=== PATIENT | male | born 1955 | race Caucasian/White ===

== ENCOUNTER 2016-07-12 06:06 | Inpatient (IN) | payer BC ==
[~2016-07-12] VITALS: Ht 182.9 cm; Wt 99.8 kg
--- NOTE | 2016-07-12 06:17 | NUR ---
PT BIB WITH C/O PALPITATIONS THAT STARTED ABOUT 4:30 THIS AM.PT STATES FEELING SOME PRESSURE IN CHEST AND SOME NAUSEA.PT STATES FEELS LIKE HEART BEAT GOING FAST AND SLOW.ERMD AT BEDSIDE EVALUATING PT.PT STATES PRESSURE 7/10.PT STATES TOOK 2 EXCEDRIN THIS AM... PT IS ALERT, ORIENTED X 4, NO RESP DISTRESS NOTED OR REPORTED UPON ASSESSMENT... MD AT BEDSIDE...
[2016-07-12] MEDS ORDERED: NEBI5TAB8 PO (06:29)
[2016-07-12] MEDS ORDERED: LOSA100T15 PO (06:29)
[2016-07-12] MEDS ORDERED: METOPROLOL TARTRATE 5 MG/5 ML VIAL IVP ONE ×4 (06:30→07:16)
--- NOTE | 2016-07-12 06:38 | NUR ---
EXECUTIVE ADMINISTRATIVE ASST AT BEDSIDE FOR CHEST X-RAY....
--- NOTE | 2016-07-12 06:38 | NUR ---
PT STATES HE IS FEELING ALOT BETTER, PTS IS AT HIS SIDE, ADVISED CHEST X-RAY HAS BEEN ORDERED.... WILL CONTINUE TO MONITOR FOR SAFETY, COMFORT, AND PAIN...
[2016-07-12 06:44] LABS: ALBUMIN 4.2 g/dL (3.4-5.0); BILIRUBIN,DIRECT 0.1 mg/dL (0.0-0.2); BILIRUBIN,TOTAL 0.7 mg/dL (0.2-1.0); CALCIUM 8.7 mg/dL (8.5-10.1); POTASSIUM 2.9 mmol/L (3.5-5.1); TOTAL PROTEIN, SERUM 7.2 g/dL (6.4-8.2)
[2016-07-12 06:45] LABS: CREATININE 1.4 mg/dL (0.6-1.3)
[2016-07-12 06:48] LABS: BASOPHILS # (AUTO) 0.1 K/uL (0.0-8.0); BASOPHILS % (AUTO) 0.9 % (0.0-2.0); EOSINOPHILS # (AUTO) 0.2 K/uL (0.0-0.7); EOSINOPHILS % (AUTO) 2.6 % (0.0-7.0); HEMATOCRIT 46.1 % (40-50); HEMOGLOBIN 15.8 G/DL (14.0-18.0); LYMPHOCYTES % (AUTO) 40.2 % (20.5-51.5); MEAN CORPUSCULAR HEMOGLOBIN 29.4 UUG (27.0-31.0); MEAN CORPUSCULAR HGB CONC 34 g/dL (32.0-37.0); MEAN CORPUSCULAR VOLUME 86.1 FL (82.0-92.0); MONOCYTES % (AUTO) 13.3 % (0.0-11.0); NEUTROPHILS # (AUTO) 3.2 K/uL (1.8-8.9); PLATELET COUNT (AUTO) 285 K/UL (150-450); RED BLOOD CELL COUNT(AUTO) 5.35 MIL/UL (4.7-6.1); WHITE BLOOD COUNT (AUTO) 7.5 K/UL (4.0-11.2)
--- NOTE | 2016-07-12 07:00 | NUR ---
CARE ENDORSED TO DAYSHIFT NURSE... PT CONTINUES RESTING IN BED, WITH AT THE BEDSIDE...
[2016-07-12] MEDS ORDERED: IV NORMAL SALINE 500 ML BAG IV ONE (07:15)
[2016-07-12] MEDS ORDERED: POTASSIUM CHLORIDE 50 ML IV SCH (07:15)
[2016-07-12] MEDS ORDERED: POTASSIUM BICARBONATE/CIT AC 25 MEQ TABLET.EFF PO ONE (07:15)
[2016-07-12] MEDS ORDERED: POTASSIUM BICARBONATE/CIT AC 25 MEQ TABLET.EFF ONE (07:24)
[2016-07-12] MEDS ORDERED: POTASSIUM CHLORIDE 50 ML ONE (07:25)
--- NOTE | 2016-07-12 07:27 | NUR ---
PT CONVERTED FROM A FIB TO SR, EKG DONE PER MD ORDER.
--- NOTE | 2016-07-12 07:28 | NUR ---
PT STATES NO CHEST PAIN AT THIS TIME. 2ND NITRO NOT NEEDED, MD AWARE.
[2016-07-12] MEDS ORDERED: NITROGLYCERIN 0.4 MG/TAB BOTTLE SL ONE ×2 (07:30→07:32)
[2016-07-12] MEDS ORDERED: ONDANSETRON 4 MG/2 ML VIAL IV ONE (07:30)
[2016-07-12] MEDS ORDERED: ONDANSETRON 4 MG/2 ML VIAL ONE (07:32)
[2016-07-12 07:40] LABS: MAGNESIUM 2.1 mg/dL (1.8-2.4)
[2016-07-12 07:43] LABS: THYROID STIMULATING HORMONE 3.017 mIU/mL (0.358-3.740)
[2016-07-12 09:30] VITALS: BP 136/94
--- NOTE | 2016-07-12 09:30 | NUR ---
Patient admitted from emergency room with c/o chest pain and palpitations. Diagnosis Chest pain/AFIB. Patient potassium noted 2.9, treated in ER. Paitent also given nitroglycerin. On admission patient is NSR on EKG. Patient alert and oriented times four. Denies pain. Patient denies being a smoker. Patient on room air. No skin issues. Only reports having hypertension. Never previously admitted to hospital.
[2016-07-12] MEDS ORDERED: ONDANSETRON 4 MG/2 ML VIAL IV PRN (10:30)
[2016-07-12] MEDS ORDERED: MAGNESIUM HYDROXIDE 30 ML LIQUID UDC PO PRN (10:30)
[2016-07-12] MEDS ORDERED: HYDROCODONE/APAP 5-325MG TABLET PO PRN (10:30)
[2016-07-12] MEDS ORDERED: ZOLPIDEM 5 MG TABLET PO PRN (10:30)
[2016-07-12] MEDS ORDERED: ACETAMINOPHEN 325 MG TABLET PO PRN (10:30)
[2016-07-12 11:22] VITALS: BP 115/78
[2016-07-12] MEDS: POTASSIUM CHLORIDE 20 MEQ in IV 1/2NS 1000 ML 1,000 ML IV PRN (12:06)
[2016-07-12 15:15] VITALS: BP 122/83
[2016-07-12] MEDS ORDERED: RIVAROXABAN 10 MG TABLET PO SCH (19:34)
--- NOTE | 2016-07-12 20:00 | NUR ---
RECEIVED PATIENT AWAKE IN BED. A/O X4. ON TELE SR. DENIES CHEST PAIN OR ANY OTHER DISCOMFORT. IVF INFUSING WELL TO LEFT AC. NO RESP. DISTRESS NOTED. VSS. XARELTO 20MG PO GIVEN ORDERED. CALL LIGHT IN REACH. ALL NEEDS ATTENDED, WILL CONTINUE TO MONITOR. Addendum: 07/12/16 at 2156 by ROYCE GAINES LVN CLARIFICATION- ON TELE SR/SB.
[2016-07-12 20:22] VITALS: BP 139/90
[2016-07-12] MEDS ORDERED: METOPROLOL TARTRATE 25 MG TABLET PO SCH (21:00)
[2016-07-13 00:04] VITALS: BP 111/77
--- NOTE | 2016-07-13 01:00 | NUR ---
PATIENT ASLEEP IN BED.ON TELE SB IN THE 40'S. REPORTED PER EMBEDDED SOFTWARE DEVELOPER THAT PATIENTS HEART RATE DROPPED TO 36, NON-SUSTAINED. PATIENT IS EASILY AROUSABLE. WILL CONTINUE TO MONITOR.
[2016-07-13] MEDS: POTASSIUM CHLORIDE 20 MEQ in IV 1/2NS 1000 ML 1,000 ML IV PRN (03:37)
[2016-07-13 04:00] VITALS: BP 123/85
--- NOTE | 2016-07-13 06:40 | NUR ---
PATIENT RESTING IN BED. ON TELE 40'S. ALL OTHER VSS. IVF INFUSING WELL THROUGHOUT THE NIGHT. DENIES PAIN. CALL LIGHT IN REACH. ALL NEEDS ATTENDED. WILL CONTINUE TO MONITOR.
[2016-07-13] MEDS ORDERED: PANTOPRAZOLE SODIUM 40 MG TABLET.DR PO SCH (07:00)
[2016-07-13 07:39] LABS: BASOPHILS % (AUTO) 0.5 % (0.0-2.0); EOSINOPHILS # (AUTO) 0.2 K/uL (0.0-0.7); HEMOGLOBIN 14.7 G/DL (14.0-18.0); MEAN CORPUSCULAR HEMOGLOBIN 30.1 UUG (27.0-31.0); MEAN CORPUSCULAR HGB CONC 34 g/dL (32.0-37.0); MEAN CORPUSCULAR VOLUME 88.1 FL (82.0-92.0); MONOCYTES # (AUTO) 0.9 K/UL (0.1-1.30); MONOCYTES % (AUTO) 12.4 % (0.0-11.0); NEUTROPHILS # (AUTO) 3.9 K/UL (1.8-8.9); NEUTROPHILS % (AUTO) 55.1 % (38.5-71.5); PLATELET COUNT (AUTO) 233 K/UL (150-450); RED BLOOD CELL COUNT(AUTO) 4.88 MIL/UL (4.7-6.1); RED CELL DISTRIBUTION WIDTH 11.8 % (11.5-14.5)
[2016-07-13 07:43] LABS: CALCIUM 8.5 mg/dL (8.5-10.1); CREATININE 1.3 mg/dL (0.6-1.3); PHOSPHOROUS 2.8 mg/dL (2.5-4.9); POTASSIUM 4.1 mmol/L (3.5-5.1)
--- NOTE | 2016-07-13 08:00 | NUR ---
Awake, alert, oriented x 4, on moderate high back rest. IVF infusing. Denies chest pain
[2016-07-13] MEDS ORDERED: LOSARTAN POTASSIUM 50 MG TABLET PO SCH (09:00)
[2016-07-13] MEDS ORDERED: ASPIRIN 81 MG TAB.CHEW PO SCH (09:00)
[2016-07-13 12:13] VITALS: BP 129/87
[2016-07-13] MEDS ORDERED: RIVA10TA PO (12:38)
[2016-07-13] MEDS ORDERED: ATOR10TA PO (12:40)
--- NOTE | 2016-07-13 13:45 | NUR ---
With discharge order to home. Saline lock removed. Tele removed. Prescription and DC instruction given to patient, verbalized understanding. Went home per wheelchair in fair condition, not in distress, afebrile
== END 2016-07-13 13:45 | disposition home or self-care (01) | DRG 280 ==
LOC: ER 06:08 → TELE 08:51
PROVIDERS: ADMIT Internal Medicine; ATTEND Internal Medicine
DX: I48.91 Unspecified atrial fibrillation (principal); I21.4 Non-ST elevation (NSTEMI) myocardial infarction; N17.0 Acute kidney failure with tubular necrosis; E87.6 Hypokalemia; E66.9 Obesity, unspecified; Z68.29 Body mass index [BMI] 29.0-29.9, adult; I11.9 Hypertensive heart disease without heart failure; R73.9 Hyperglycemia, unspecified
CPT/HCPCS: 36415; 70030-TC; 71010; 83735; 84100; 84443; 85025; 85730; 93005; 93307; A4663; J2405; J3480; J3490; J7040

== ENCOUNTER 2016-08-05 07:08 | Inpatient (IN) | payer BC ==
[~2016-08-05] VITALS: Ht 182.9 cm; Wt 97.5 kg
[~2016-08-05 07:08] MED LIST: ATOR10TA PO; LOSA100T15 PO; NEBI5TAB8 PO; RIVA10TA PO
[2016-08-05] MEDS ORDERED: IV NORMAL SALINE 1000 ML BAG IV ONE (07:30)
[2016-08-05 07:40] LABS: BASOPHILS # (AUTO) 0.1 K/uL (0.0-8.0); BASOPHILS % (AUTO) 1.1 % (0.0-2.0); EOSINOPHILS # (AUTO) 0.1 K/uL (0.0-0.7); EOSINOPHILS % (AUTO) 1.4 % (0.0-7.0); HEMATOCRIT 47.4 % (40-50); HEMOGLOBIN 16.8 G/DL (14.0-18.0); LYMPHOCYTES # (AUTO) 1.8 K/UL (0.8-4.8); LYMPHOCYTES % (AUTO) 24.7 % (20.5-51.5); MEAN CORPUSCULAR HEMOGLOBIN 30.8 UUG (27.0-31.0); MEAN CORPUSCULAR HGB CONC 35 g/dL (32.0-37.0); MONOCYTES # (AUTO) 0.7 K/UL (0.1-1.30); MONOCYTES % (AUTO) 9.7 % (0.0-11.0); NEUTROPHILS # (AUTO) 4.5 K/UL (1.8-8.9); NEUTROPHILS % (AUTO) 63.1 % (38.5-71.5); PLATELET COUNT (AUTO) 280 K/UL (150-450); RED BLOOD CELL COUNT(AUTO) 5.44 MIL/UL (4.7-6.1); WHITE BLOOD COUNT (AUTO) 7.2 K/UL (4.0-11.2)
[2016-08-05 07:45] LABS: CREATININE 1.3 mg/dL (0.6-1.3); POTASSIUM 3.7 mmol/L (3.5-5.1)
[2016-08-05] MEDS ORDERED: ONDANSETRON ODT 4 MG TAB.RAPDIS SL ONE (07:45)
[2016-08-05] MEDS ORDERED: ONDANSETRON IV *ER 4 MG/2 ML VIAL IV ONE (07:45)
[2016-08-05] MEDS ORDERED: LORAZEPAM 2 MG/1 ML VIAL IV ONE (07:45)
[2016-08-05] MEDS ORDERED: ONDANSETRON 4 MG/2 ML VIAL ONE (07:45)
[2016-08-05] MEDS ORDERED: LORAZEPAM 2 MG/1 ML VIAL ONE (07:46)
[2016-08-05 07:51] LABS: BILIRUBIN,DIRECT 0.2 mg/dL (0.0-0.2); TOTAL PROTEIN, SERUM 7.2 g/dL (6.4-8.2)
--- NOTE | 2016-08-05 08:30 | NUR ---
Patient recieved in wheelchair by RERE Smalls RN. No s/s of distress noted. Denied pain. C/O of Sob. 2 L administered. V/S WNL. Beta darrel was not given due to low HR <60. at the bedside. patient monitor on placed. Dr. Brewer saw patient and discussed plan of care. Will continue monitoring.
--- NOTE | 2016-08-05 08:53 | NUR ---
pt transfered to floor in stable condition, pt is calm now and says feels better. pt at bedside the whole er stay.
[2016-08-05] MEDS: CARVEDILOL 3.125 MG TABLET PO SCH ×2 (09:00→17:16)
[2016-08-05] MEDS ORDERED: ONDANSETRON 4 MG/2 ML VIAL IV PRN (09:45)
[2016-08-05] MEDS ORDERED: Z GUARD REMEDY PASTE 57 GM TUBE TOP PRN (09:45)
[2016-08-05] MEDS ORDERED: MORPHINE SULFATE 2 MG/1 ML DISP.SYRIN IV PRN (09:45)
[2016-08-05] MEDS ORDERED: ACETAMINOPHEN 325 MG TABLET PO PRN (09:45)
[2016-08-05 09:48] VITALS: BP 117/83
[2016-08-05] MEDS ORDERED: ALPRAZOLAM 0.5 MG TABLET PO PRN (10:00)
[2016-08-05] MEDS: LOSARTAN POTASSIUM 50 MG TABLET PO SCH (10:18)
[2016-08-05 11:26] VITALS: BP 106/79
[2016-08-05 15:17] VITALS: BP 108/74
[2016-08-05] MEDS ORDERED: RIVAROXABAN 10 MG TABLET PO SCH (18:00)
--- NOTE | 2016-08-05 18:07 | NUR ---
Patient have been in bed resting, calm. No s/s of distress noted. Denied chest pain. manager monitoring on placed, HR 55-60 bpm. V/S WNL. Beta blockers were hold due to decrease HR. at the bedside during the afternoon. Iv still intact. Safety and comfort provided. Will continue monitoring.
[2016-08-05 20:09] VITALS: BP 101/64
[2016-08-05] MEDS ORDERED: ATORVASTATIN 10 MG TABLET PO SCH (21:00)
[2016-08-06 00:03] VITALS: BP 106/68
[2016-08-06 04:00] VITALS: BP 99/73
--- NOTE | 2016-08-06 05:45 | NUR ---
SINUS BRADYCARDIA LOW 39/MINUTE AT THIS TIME. WOKE UP PATIENT, AROUSABLE, ASYMPTOMATIC. HEART RATE WENT BACK TO 46-47/MINUTE VIA TELEMETRY. TO CONTINUE TO MONITOR
[2016-08-06 06:55] LABS: BASOPHILS % (AUTO) 0.7 % (0.0-2.0); EOSINOPHILS # (AUTO) 0.2 K/uL (0.0-0.7); EOSINOPHILS % (AUTO) 2.9 % (0.0-7.0); HEMATOCRIT 43.6 % (40-50); HEMOGLOBIN 14.8 G/DL (14.0-18.0); LYMPHOCYTES # (AUTO) 1.9 K/UL (0.8-4.8); LYMPHOCYTES % (AUTO) 27.1 % (20.5-51.5); MEAN CORPUSCULAR HEMOGLOBIN 30.1 UUG (27.0-31.0); MEAN CORPUSCULAR HGB CONC 34 g/dL (32.0-37.0); MEAN CORPUSCULAR VOLUME 88.9 FL (82.0-92.0); MONOCYTES # (AUTO) 0.8 K/UL (0.1-1.30); MONOCYTES % (AUTO) 11.9 % (0.0-11.0); NEUTROPHILS # (AUTO) 4.2 K/UL (1.8-8.9); NEUTROPHILS % (AUTO) 57.4 % (38.5-71.5); PLATELET COUNT (AUTO) 246 K/UL (150-450); WHITE BLOOD COUNT (AUTO) 7.1 K/UL (4.0-11.2)
[2016-08-06] MEDS ORDERED: CARV3.12 PO (07:00)
[2016-08-06 07:26] LABS: BILIRUBIN,TOTAL 0.8 mg/dL (0.2-1.0); CREATININE 1.3 mg/dL (0.6-1.3); MAGNESIUM 1.9 mg/dL (1.8-2.4); PHOSPHOROUS 3.4 mg/dL (2.5-4.9); TOTAL PROTEIN, SERUM 6.4 g/dL (6.4-8.2)
[2016-08-06 07:57] LABS: THYROID STIMULATING HORMONE 1.108 mIU/mL (0.358-3.740)
[2016-08-06] MEDS: LOSARTAN POTASSIUM 50 MG TABLET PO SCH (08:00)
[2016-08-06] MEDS: CARVEDILOL 3.125 MG TABLET PO SCH (08:00)
[2016-08-06] MEDS ORDERED: ASPIRIN EC 81 MG TABLET.DR PO SCH (09:00)
--- NOTE | 2016-08-06 11:18 | NUR ---
PATIENT BEEN DISCHARGE IN STABLE CONDITION. NO S/S OF DISTRESS NOTED. DENIED PAIN. SINUS TOM NOTED IN THE MONITOR, ASYMPTOMATIC. AMBULATORY WITHOUT DISTRESS. V/S WNL. DISCHARGE INSTRUCTIONS WERE EXPLAINED AND A COPY WAS GIVEN, WELL PRESCRIPTIONS. PATIENT WILL PICKED UP FROM HIS AFTER NOON. SAFETY AND COMFORT PROVIDED. WILL CONTINUE MONITORING.
[2016-08-06 11:31] VITALS: BP 120/78
--- NOTE | 2016-08-06 14:20 | NUR ---
Patient was picked up by his Maya accompanied by WOOL CLEANER. No s/s of distress noted. All belongings were taken. IV, ID, and cardiac removed. Safety and comfort provided during my shift.
== END 2016-08-06 14:00 | disposition home or self-care (01) | DRG 282 ==
LOC: ER 07:08 → TELE 08:49
PROVIDERS: ADMIT Nurse Practitioner Acute Care; ATTEND Nurse Practitioner Acute Care
DX: I21.4 Non-ST elevation (NSTEMI) myocardial infarction (principal); E78.5 Hyperlipidemia, unspecified; I10 Essential (primary) hypertension; I48.0 Paroxysmal atrial fibrillation; F41.9 Anxiety disorder, unspecified; I49.5 Sick sinus syndrome
CPT/HCPCS: 36415; 70030-TC; 71010; 83735; 84100; 84443; 85025; 85730; 93005; 97161; A4663; J2060; J2405; J7030

== ENCOUNTER 2016-08-26 09:49 | Inpatient (IN) | payer BC ==
[~2016-08-26] VITALS: Ht 182.9 cm; Wt 94.3 kg
[~2016-08-26 09:49] MED LIST changes: +CARV3.12 PO; -NEBI5TAB8 PO
[2016-08-26] MEDS ORDERED: PROP300T2 PO (09:58)
--- NOTE | 2016-08-26 10:08 | NUR ---
pt is in room #1b. dr mandujano evaluated the pt.
[2016-08-26 10:50] LABS: BASOPHILS # (AUTO) 0.1 K/uL (0.0-8.0); EOSINOPHILS # (AUTO) 0.1 K/uL (0.0-0.7); EOSINOPHILS % (AUTO) 0.7 % (0.0-7.0); MEAN CORPUSCULAR HEMOGLOBIN 28.6 UUG (27.0-31.0)
[2016-08-26 10:51] LABS: BASOPHILS % (AUTO) 0.8 % (0.0-2.0); HEMATOCRIT 48.6 % (40-50); LYMPHOCYTES # (AUTO) 1.3 K/UL (0.8-4.8); LYMPHOCYTES % (AUTO) 16.7 % (20.5-51.5); MEAN CORPUSCULAR HGB CONC 33 g/dL (32.0-37.0); MEAN CORPUSCULAR VOLUME 87.1 FL (82.0-92.0); MONOCYTES # (AUTO) 0.9 K/UL (0.1-1.30); MONOCYTES % (AUTO) 11.6 % (0.0-11.0); NEUTROPHILS # (AUTO) 5.5 K/UL (1.8-8.9); NEUTROPHILS % (AUTO) 70.2 % (38.5-71.5); PLATELET COUNT (AUTO) 307 K/UL (150-450); RED BLOOD CELL COUNT(AUTO) 5.58 MIL/UL (4.7-6.1); WHITE BLOOD COUNT (AUTO) 7.9 K/UL (4.0-11.2)
[2016-08-26 10:58] LABS: CREATININE 1.3 mg/dL (0.6-1.3); POTASSIUM 3.9 mmol/L (3.5-5.1)
[2016-08-26 11:11] LABS: BILIRUBIN,DIRECT 0.2 mg/dL (0.0-0.2); BILIRUBIN,TOTAL 0.7 mg/dL (0.2-1.0); TOTAL PROTEIN, SERUM 7.4 g/dL (6.4-8.2)
[2016-08-26] MEDS ORDERED: IV NORMAL SALINE 1000 ML BAG IV ONE (11:45)
[2016-08-26] MEDS ORDERED: LORAZEPAM 2 MG/1 ML VIAL IV ONE (11:45)
[2016-08-26] MEDS ORDERED: LORAZEPAM 2 MG/1 ML VIAL ONE (12:04)
[2016-08-26] MEDS ORDERED: LORAZEPAM 2 MG/1 ML VIAL IV PRN (13:00)
[2016-08-26] MEDS ORDERED: MORPHINE SULFATE 2 MG/1 ML DISP.SYRIN IV PRN (13:00)
[2016-08-26] MEDS ORDERED: ACETAMINOPHEN 325 MG TABLET PO PRN (13:00)
[2016-08-26] MEDS ORDERED: ONDANSETRON 4 MG/2 ML VIAL IV PRN (13:00)
--- NOTE | 2016-08-26 13:41 | NUR ---
PT WAS TRANSFERED TO TELEMETRY ROOM ROOM #215. REPORT WAS GIVEN TO CLINICAL SCIENTIST.
[2016-08-26 14:15] VITALS: BP 124/92
[2016-08-26 15:32] VITALS: BP 122/89
[2016-08-26] MEDS ORDERED: RIVAROXABAN 10 MG TABLET PO SCH (18:00)
[2016-08-26] MEDS ORDERED: CARVEDILOL 3.125 MG TABLET PO SCH (18:00)
[2016-08-26 19:00] VITALS: BP 109/76
[2016-08-26 20:00] VITALS: BP 109/76
--- NOTE | 2016-08-26 20:00 | NUR ---
RN NOTES: PATIENT RECEIVED IN STABLE CONDITION, NO COMPLAINS OF PAIN OR DISTRESS NOTED. WILL CONTINUE TO MONITOR.
[2016-08-26] MEDS: FLECAINIDE ACETATE 100 MG TABLET PO SCH ×2 (20:46→20:51)
[2016-08-26] MEDS ORDERED: ATORVASTATIN 10 MG TABLET PO SCH (21:00)
[2016-08-27 00:02] VITALS: BP 101/72
[2016-08-27 04:00] VITALS: BP 101/73
[2016-08-27 07:38] LABS: THYROID STIMULATING HORMONE 1.156 mIU/mL (0.358-3.740)
[2016-08-27 07:41] LABS: BILIRUBIN,TOTAL 0.7 mg/dL (0.2-1.0); CREATININE 1.3 mg/dL (0.6-1.3); MAGNESIUM 2.1 mg/dL (1.8-2.4); PHOSPHOROUS 3.7 mg/dL (2.5-4.9); POTASSIUM 3.9 mmol/L (3.5-5.1); TOTAL PROTEIN, SERUM 6.5 g/dL (6.4-8.2)
[2016-08-27 07:46] LABS: BASOPHILS # (AUTO) 0.1 K/uL (0.0-8.0); BASOPHILS % (AUTO) 0.7 % (0.0-2.0); EOSINOPHILS # (AUTO) 0.2 K/uL (0.0-0.7); EOSINOPHILS % (AUTO) 2.1 % (0.0-7.0); HEMATOCRIT 44.1 % (40-50); HEMOGLOBIN 14.6 G/DL (14.0-18.0); LYMPHOCYTES # (AUTO) 1.8 K/UL (0.8-4.8); LYMPHOCYTES % (AUTO) 25.2 % (20.5-51.5); MEAN CORPUSCULAR HEMOGLOBIN 29.1 UUG (27.0-31.0); MEAN CORPUSCULAR HGB CONC 33 g/dL (32.0-37.0); MEAN CORPUSCULAR VOLUME 88.2 FL (82.0-92.0); MONOCYTES # (AUTO) 0.7 K/UL (0.1-1.30); MONOCYTES % (AUTO) 10.3 % (0.0-11.0); NEUTROPHILS # (AUTO) 4.5 K/UL (1.8-8.9); NEUTROPHILS % (AUTO) 61.7 % (38.5-71.5); PLATELET COUNT (AUTO) 260 K/UL (150-450); WHITE BLOOD COUNT (AUTO) 7.3 K/UL (4.0-11.2)
[2016-08-27] MEDS: FLECAINIDE ACETATE 100 MG TABLET PO SCH (08:29)
[2016-08-27] MEDS ORDERED: PANTOPRAZOLE SODIUM 40 MG TABLET.DR PO SCH (09:00)
[2016-08-27] MEDS ORDERED: Medication Not On Formulary EA (Losartan Potassium 100 MG) PO SCH (09:00)
[2016-08-27] MEDS ORDERED: LOSARTAN POTASSIUM 50 MG TABLET PO SCH (09:00)
[2016-08-27 11:30] VITALS: BP 113/81
[2016-08-27 15:12] VITALS: BP_SYST 106; BP_SYST 113; BP_DIAS 66; BP_DIAS 81
[2016-08-27] MEDS ORDERED: FLEC100T3 PO (15:36)
--- NOTE | 2016-08-27 17:43 | NUR ---
%PATIENT DISCHARGED HOME IN SAFE AND STABLE CONDITION. NO S/S OF DISTRESS NOTED. DENIED PAIN DURING MY SHIFT. OXYGEN WAS TAKEN BEFORE LEAVING >95% ROOM AIR. DISCHARGE INSTRUCTIONS EXPLAINED, AND SIGNED BY PT. IV, ID BAND AND MID LEVEL PRACTITIONER REMOVED. PRESCRIPTIONS WERE GIVEN WELL. PATIENT DECIDED TO AMBULATE TO THE LOBBY WHERE WILL PICK HIM UP. I ACCOMPANIED PATIENT IN SAFE AND STABLE CONDITION. SAFETY AND COMFORT PROVIDED DURING THE DAY. WILL CONTINUE MONITORING.
== END 2016-08-27 17:30 | disposition home or self-care (01) | DRG 282 ==
LOC: ER 09:49 → TELE 13:29
PROVIDERS: ADMIT Internal Medicine; ATTEND Internal Medicine
DX: I48.0 Paroxysmal atrial fibrillation (principal); I22.2 Subsequent non-ST elevation (NSTEMI) myocardial infarction; I21.4 Non-ST elevation (NSTEMI) myocardial infarction; Z79.01 Long term (current) use of anticoagulants; E78.5 Hyperlipidemia, unspecified; Z80.9 Family history of malignant neoplasm, unspecified; I49.5 Sick sinus syndrome; I08.1 Rheumatic disorders of both mitral and tricuspid valves; Z87.01 Personal history of pneumonia (recurrent); J84.10 Pulmonary fibrosis, unspecified; R73.9 Hyperglycemia, unspecified; Z87.81 Personal history of (healed) traumatic fracture; D71 Functional disorders of polymorphonuclear neutrophils; I11.9 Hypertensive heart disease without heart failure; R19.7 Diarrhea, unspecified; Z79.899 Other long term (current) drug therapy; R79.1 Abnormal coagulation profile
CPT/HCPCS: 36415; 70030-TC; 71010; 83735; 84100; 84443; 85025; 85730; 93005; 97161; A4663; J2060; J7030

== ENCOUNTER 2016-12-06 20:07 | Emergency (ER) | payer BC ==
[~2016-12-06] VITALS: Ht 185.4 cm; Wt 86.2 kg
[~2016-12-06 20:07] MED LIST changes: -CARV3.12 PO; +FLEC100T3 PO
--- NOTE | 2016-12-06 20:30 | NUR ---
Pt ambulated to room with steady gait. Pt c/o high blood pressure with no improvement with home medications. As well as right arm pain. Pt denies headache, denies dizziness, denies CP and denies SOB. Dr. Sellers at bedside for MSE
[2016-12-06] MEDS ORDERED: CLONIDINE HCL 0.2 MG TABLET PO ONE (20:45)
--- NOTE | 2016-12-06 21:05 | NUR ---
Pt medicated for blood pressure, will monitor for effects of medication. Pt resting in position of comfort for self.
[2016-12-06] MEDS ORDERED: CLONIDINE HCL 0.2 MG TABLET ONE (21:16)
--- NOTE | 2016-12-06 22:10 | NUR ---
Blood pressure improved. Pt stable for discharge per Dr. Sellers. Pt given ACI and verbalized understanding of dc instructions. Pt ambulated out of ER with steady gait and ride home.
[2016-12-06 22:30] VITALS: BP 136/95
== END 2016-12-06 22:10 | disposition home or self-care (01) ==
LOC: ER 20:08
DX: I10 Essential (primary) hypertension (principal); I48.0 Paroxysmal atrial fibrillation; E78.5 Hyperlipidemia, unspecified
CPT/HCPCS: 93005; A4663

== ENCOUNTER 2017-01-20 14:15 | Emergency (ER) | payer BC ==
[~2017-01-20] VITALS: Ht 180.3 cm; Wt 86.2 kg
[2017-01-20] MEDS ORDERED: ONDA8TAB6 PO (14:26)
[2017-01-20] MEDS ORDERED: ALPR0.5T8 PO (14:26)
[2017-01-20] MEDS ORDERED: CARV6.252 PO (14:26)
[2017-01-20] MEDS ORDERED: ZOLP5TAB8 PO (14:26)
[2017-01-20] MEDS ORDERED: IV NORMAL SALINE 500 ML BAG IV ONE (14:30)
--- NOTE | 2017-01-20 14:32 | NUR ---
DR MARTINEZ AT THE BEDSIDE FOR EVAL AND EXAM.
--- NOTE | 2017-01-20 14:48 | NUR ---
PT OUT OF ER FOR CT.
[2017-01-20 14:51] LABS: BASOPHILS # (AUTO) 0.1 K/uL (0.0-8.0); BASOPHILS % (AUTO) 1.4 % (0.0-2.0); EOSINOPHILS # (AUTO) 0.1 K/uL (0.0-0.7); EOSINOPHILS % (AUTO) 1.9 % (0.0-7.0); HEMOGLOBIN 14.9 G/DL (14.0-18.0); LYMPHOCYTES # (AUTO) 1.6 K/UL (0.8-4.8); MEAN CORPUSCULAR HEMOGLOBIN 29.9 UUG (27.0-31.0); MEAN CORPUSCULAR HGB CONC 34 g/dL (32.0-37.0); MEAN CORPUSCULAR VOLUME 88.5 FL (82.0-92.0); MONOCYTES # (AUTO) 0.6 K/UL (0.1-1.30); MONOCYTES % (AUTO) 10.5 % (0.0-11.0); NEUTROPHILS # (AUTO) 3.7 K/UL (1.8-8.9); NEUTROPHILS % (AUTO) 60.2 % (38.5-71.5); PLATELET COUNT (AUTO) 230 K/UL (150-450); RED BLOOD CELL COUNT(AUTO) 4.97 MIL/UL (4.7-6.1); WHITE BLOOD COUNT (AUTO) 6.1 K/UL (4.0-11.2)
[2017-01-20 15:03] LABS: CREATININE 1.2 mg/dL (0.6-1.3); POTASSIUM 4.2 mmol/L (3.5-5.1)
[2017-01-20 15:10] LABS: BILIRUBIN,DIRECT 0.2 mg/dL (0.0-0.2); BILIRUBIN,TOTAL 0.6 mg/dL (0.2-1.0); TOTAL PROTEIN, SERUM 6.9 g/dL (6.4-8.2)
[2017-01-20] MEDS ORDERED: HYDROMORPHONE 1 MG/1 ML DISP.SYRIN IV ONE (15:45)
[2017-01-20] MEDS ORDERED: ONDANSETRON IV *ER 4 MG/2 ML VIAL IV ONE (15:45)
--- NOTE | 2017-01-20 15:45 | NUR ---
IV removed. Catheter intact and site benign. Pressure and 4x4 gauze applied to site. No bleeding noted.
[2017-01-20 15:47] VITALS: BP 133/98
--- NOTE | 2017-01-20 15:49 | NUR ---
Patient discharged to home in stable conditon. Written and verbal after care instructions given. Patient verbalizes understanding of instructions. Pt left ER w/ steady gait accompained by .
[2017-01-20] MEDS ORDERED: HYDROMORPHONE 2 MG/1 ML DISP.SYRIN ONE (15:54)
[2017-01-20] MEDS ORDERED: ONDANSETRON 4 MG/2 ML VIAL ONE (15:54)
== END 2017-01-20 15:49 | disposition home or self-care (01) ==
LOC: ER 14:15
DX: G51.0 Bell's palsy (principal); I10 Essential (primary) hypertension; I48.91 Unspecified atrial fibrillation; E78.5 Hyperlipidemia, unspecified
CPT/HCPCS: 36415; 70030-TC; 70450; 71010; 85025; 85730; 93005; A4663; J1170; J2405

== ENCOUNTER 2017-05-07 15:20 | Emergency (ER) | payer BC ==
[~2017-05-07] VITALS: Ht 180.3 cm; Wt 86.2 kg
[~2017-05-07 15:20] MED LIST changes: +ALPR0.5T8 PO; +CARV6.252 PO; -FLEC100T3 PO; +ONDA8TAB6 PO; +ZOLP5TAB8 PO
[2017-05-07 15:44] LABS: *BILIRUBIN,URIN NEGATIVE (NEGATIVE); *BLOOD, URINE 3+ (NEGATIVE); *CLARITY,URINE SLIGHTLY CLOUDY (CLEAR); *COLOR,URINE ORANGE (YELLOW); *KETONES,URINE NEGATIVE (NEGATIVE); *PROTEIN,URINE 1+ (NEGATIVE); *UROBILINOGEN,URINE 0.2 E.U./dl (NORMAL); LEUKOCYTE ESTERASE ,URINE NEGATIVE (NEGATIVE); NITRITE, URINE NEGATIVE (NEGATIVE); PH,URINE 5.5 (5.0-8.0); UGLUCOSE NEGATIVE (NEGATIVE)
[2017-05-07 16:10] LABS: BACTERIA,URINE NONE SEEN /HPF (NONE SEEN); RBC,URINE 50-80 /HPF (0-3); SQUAMOUS EPITHELIAL CELL,UR NONE SEEN /HPF (NONE SEEN); WBC,URINE 0-3 /HPF (0-3)
--- NOTE | 2017-05-07 17:52 | NUR ---
Patient discharged to home in stable conditon. Written and verbal after care instructions given. Patient verbalizes understanding of instructions.
== END 2017-05-07 17:52 | disposition home or self-care (01) ==
LOC: ER 15:21
DX: R31.9 Hematuria, unspecified (principal); I10 Essential (primary) hypertension; I48.91 Unspecified atrial fibrillation; I25.10 Atherosclerotic heart disease of native coronary artery without angina pectoris; E78.00 Pure hypercholesterolemia, unspecified; Z79.899 Other long term (current) drug therapy
CPT/HCPCS: 87086; A4663

== ENCOUNTER 2017-07-13 05:42 | Emergency (ER) | payer BC ==
[~2017-07-13] VITALS: Ht 180.3 cm; Wt 88.5 kg
--- NOTE | 2017-07-13 06:10 | NUR ---
PATIENT ARRIVES TO THE ER VIA PRIVATE VEHICLE FROM HOME. PATIENT AAOX4. ABLE TO SPEAK IN COMPLETE SENTENCES. ABLE TO FOLLOW DIRECTIONS. SPEECH IS CLEAR. RESPONSIVE TO VERBAL AND TACTILE STIMULI. PATIENT COMES INTO THE ER WITH C/O L FLANK PAIN SINCE 0500 THIS MORNING. IN ADDITION TO THE PAIN, THE PATIENT ENDORSES HEMATURIA STARTING LAST NIGHT. UPON ARRIVAL TO THE ER , PATIENT STATES HE HAS 8/10 LEFT FLANK PAIN, L CVA TENDERNESS, CONTINUED HEMATURIA. PATIENT DENIES NAUSEA/VOMITING/DIARRHEA. PATIENT HAS HISTORY OF KIDNEY STONES 2 MONTHS AGO, AND IS CURRENTLY BEING FOLLOWED BY A UROLOGIST. RESPIRATIONS EVEN AND UNLABORED. NO CARDIOVASCULAR DISTRESS NOTED. PATIENT HAS NO C/O CHEST PAIN OR RESPIRATION DISTRESS AT THIS TIME. NO SOB NOTED. NO GI DISTRESS NOTED AT THIS TIME. ABDOMEN IS SOFT AND NONDISTENDED. ROTUND PER ASSESSMENT. BOWEL SOUNDS PRESENT AND NORMOACTIVE IN ALL QUADRANTS. PATIENT MEDICAL HISTORY INCLUDES: HTN, A-FIB W/ ABLATION, NON ST SEGMENT NH, HYPERLIPIDEMIA, UMBILICAL HERNIA REPAIR IN 2002. PATIENT PLACED ON SPRAY OPERATOR AND SAO2 AT THIS TIME. BED IN LOWEST POSITION, WHEELS LOCKED. SIDERAILS UP X2. CALL LIGHT IS WITHIN REACH. ALL PATIENT NEEDS ATTENDED AND MET. VISITOR AT BEDSIDE.
[2017-07-13] MEDS: IV NORMAL SALINE 1000 ML BAG IV ONE (06:14)
[2017-07-13] MEDS: HYDROMORPHONE 1 MG/1 ML DISP.SYRIN IV ONE (06:16)
[2017-07-13] MEDS ORDERED: ONDANSETRON 4 MG/2 ML VIAL ONE (06:16)
[2017-07-13] MEDS ORDERED: HYDROMORPHONE 2 MG/1 ML DISP.SYRIN ONE (06:16)
[2017-07-13] MEDS: ONDANSETRON IV *ER 4 MG/2 ML VIAL IV ONE (06:19)
--- NOTE | 2017-07-13 06:23 | NUR ---
PATIENT PROVIDED ANALGESIC, ANTIEMETIC MEDICATION VIA IV. WELL TOLERATED BY PATIENT. NO NAUSEA/RESPIRATORY DISTRESS NOTED. PATIENT STATES HIS PAIN IS IMPROVING AT THIS TIME.
[2017-07-13 06:24] LABS: BASOPHILS # (AUTO) 0.1 K/uL (0.0-8.0); BASOPHILS % (AUTO) 0.7 % (0.0-2.0); EOSINOPHILS # (AUTO) 0.2 K/uL (0.0-0.7); EOSINOPHILS % (AUTO) 3.1 % (0.0-7.0); HEMATOCRIT 43.6 % (36.7-47.1); HEMOGLOBIN 15.5 g/dL (12.5-16.3); LYMPHOCYTES # (AUTO) 2.4 K/uL (20.0-40.0); MEAN CORPUSCULAR HEMOGLOBIN 30.9 uug (23.8-33.4); MEAN CORPUSCULAR HGB CONC 36 g/dL (32.5-36.3); MEAN CORPUSCULAR VOLUME 87.1 fL (73.0-96.2); MONOCYTES # (AUTO) 1.2 K/uL (2.0-10.0); MONOCYTES % (AUTO) 16.1 % (0.0-11.0); NEUTROPHILS # (AUTO) 3.6 K/uL (1.8-8.9); NEUTROPHILS % (AUTO) 48.1 % (38.5-71.5); PLATELET COUNT (AUTO) 275 K/uL (152-348); WHITE BLOOD COUNT (AUTO) 7.5 K/uL (3.6-10.2)
[2017-07-13 06:47] LABS: CREATININE 1.3 mg/dL (0.6-1.3); POTASSIUM 3.7 mmol/L (3.5-5.1)
--- NOTE | 2017-07-13 06:49 | NUR ---
PATIENT TAKEN TO CT VIA GURNEY WITH TRANSPORTER. VSS. NO ACUTE DISTRESS NOTED AT THIS TIME.
[2017-07-13 06:52] LABS: BILIRUBIN,DIRECT 0.1 mg/dL (0.0-0.2); BILIRUBIN,TOTAL 0.8 mg/dL (0.2-1.0); TOTAL PROTEIN, SERUM 7.2 g/dL (6.4-8.2)
[2017-07-13 07:08] LABS: *BILIRUBIN,URIN NEGATIVE (NEGATIVE); *BLOOD, URINE 3+ (NEGATIVE); *CLARITY,URINE SLIGHTLY CLOUDY (CLEAR); *COLOR,URINE YELLOW (YELLOW); *KETONES,URINE NEGATIVE (NEGATIVE); *PROTEIN,URINE NEGATIVE (NEGATIVE); *UROBILINOGEN,URINE 0.2 E.U./dl (NORMAL); LEUKOCYTE ESTERASE ,URINE NEGATIVE (NEGATIVE); NITRITE, URINE NEGATIVE (NEGATIVE); PH,URINE 5.5 (5.0-8.0); UGLUCOSE NEGATIVE (NEGATIVE)
--- NOTE | 2017-07-13 07:09 | NUR ---
REPORT GIVEN TO WALLY WAGNER DAY SHIFT.
--- NOTE | 2017-07-13 07:15 | NUR ---
Towboat Engineer assumes care. EKG done. Patient is c/o severe LLQ abdominal pains again, MD aware. Comfort and safety measures initiated.
[2017-07-13] MEDS: MORPHINE SULFATE 4 MG/1 ML DISP.SYRIN IV ONE (07:24)
[2017-07-13 07:25] LABS: BACTERIA,URINE NONE SEEN /HPF (NONE SEEN); RBC,URINE TNTC /HPF (0-3); SQUAMOUS EPITHELIAL CELL,UR NONE SEEN /HPF (NONE SEEN); WBC,URINE NONE SEEN /HPF (0-3)
[2017-07-13] MEDS ORDERED: MORPHINE SULFATE 4 MG/1 ML DISP.SYRIN ONE (07:25)
[2017-07-13] MEDS ORDERED: KETOROLAC TROMETHAMINE 30 MG INJ ONE (07:25)
[2017-07-13] MEDS: KETOROLAC TROMETHAMINE 30 MG INJ IVP ONE (07:26)
[2017-07-13 07:58] LABS: EOSINOPHILS % (MANUAL) 3 % (0-8); LYMPHOCYTES % (MANUAL) 34 % (20-40); MONOCYTES % (MANUAL) 14 % (2-10); NEUTROPHILS % (MANUAL) 49 % (42-75)
--- NOTE | 2017-07-13 08:00 | NUR ---
Patient is resting comfortably in bed with eyes closed, decreased abdominal pains expressed.
--- NOTE | 2017-07-13 09:32 | NUR ---
IV removed. Catheter intact and site benign. Pressure and 4x4 gauze applied to site. No bleeding noted. Patient discharged to home in stable conditon & steady gait. Written and verbal after care instructions given to patient and spouse. Patient and spouse verbalized understanding of instructions.
== END 2017-07-13 09:32 | disposition home or self-care (01) ==
LOC: ER 05:45
DX: R31.9 Hematuria, unspecified (principal); I10 Essential (primary) hypertension; I48.91 Unspecified atrial fibrillation; E78.5 Hyperlipidemia, unspecified; Z79.899 Other long term (current) drug therapy
CPT/HCPCS: 36415; 70030-TC; 83690; 85025; 87086; 93005; A4663; J1170; J1885; J2270; J2405; J7030